=== PATIENT | male | born 1970 | race Caucasian/White ===

== ENCOUNTER 2022-03-07 09:06 | Emergency (ER) | payer OTHER, SELFPAY ==
[2022-03-07 09:14] VITALS: BP 156/101; PULSE 108; RESP 14; TEMP 36.6; O2SAT 99
--- NOTE | 2022-03-07 09:27 | ED_ITS ---
HPI - Animal Bite General Chief Complaint: Animal Bite Stated Complaint: spider bite L leg Time Seen by Provider: 03/07/22 09:20 History of Present Illness HPI narrative: 51-year-old male presents to the emergency room with suppose it spider bites to his left buttocks. 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 However he did not see a spider bite him. Patient is unsure how a spider got into his pants and bit him on the buttocks. Patient states the bite developed into an abscess over the past couple of days. Also has other scattered large erythematous areas to his left upper leg and right wrist. Patient states that he has noticed multiple bites scattered over his body that usually resolve within 1 to 2 weeks Review of Systems Review of Systems: CONSTITUTIONAL: Denies fever, chills, or sweats. EYES: Denies visual changes, redness, or discharge. ENT: Denies rhinorrhea, congestion, sore throat, or otalgia. CARDIOVASCULAR: Denies chest pain, palpitations, or edema. RESPIRATORY: Denies cough or dyspnea. GASTROINTESTINAL: Denies abdominal pain, nausea, vomiting, or diarrhea. GENITOURINARY: Denies dysuria or hematuria. SKIN: Denies rash or itching. MUSCULOSKELETAL: Denies back pain, joint pain, or myalgia. NEUROLOGIC: Denies headache, numbness, dizziness, or weakness. PSYCHIATRIC: Denies anxiety or depression. Exam Narrative: GENERAL: Well-appearing, well-nourished, no physical limitations, and in no acute distress. HEAD: Normocephalic, atraumatic. EYES: Conjunctivae normal, PERRLA and EOMI. CHEST: Clear to auscultation. No respiratory distress. No wheezes rales or rhonchi. HEART: Regular rate and rhythm. No murmur heard. Normal peripheral pulses. EXTREMITIES: Normal range of motion. No edema. No clubbing or cyanosis SKIN:LLE: 2 cm ulceration with surrounding erythema to upper lateral leg, no signs of lymphangitic spread. Large erythematous tender swollen area just superior to the ulcer. NEURO: No focal deficits. Alert and oriented x3. MAEW. CN's II-XI intact bilaterally, normal gait PSYCH: Cooperative. Normal mood and affect. Course Vital Signs Vital signs: Vital Signs Temperature 36.6 C 03/07/22 09:14 Pulse Rate 108 H 03/07/22 09:14 Respiratory Rate 14 03/07/22 09:14 Blood Pressure 156/101 H 03/07/22 09:14 Pulse Oximetry 99 03/07/22 09:14 Oxygen Delivery Room Air 03/07/22 09:14 Temperature 36.6 C 03/07/22 09:14 Pulse Rate 108 H 03/07/22 09:14 Respiratory Rate 14 03/07/22 09:14 Blood Pressure 156/101 H 03/07/22 09:14 Pulse Oximetry 99 03/07/22 09:14 Oxygen Delivery Room Air 03/07/22 09:14 Discharge Plan Discharge Clinical Impression: Abscess Patient Disposition: Home, Self-Care Condition: Stable Instructions: Antibiotic Form, Abscess (ED) Prescriptions: New sulfamethoxazole-trimethoprim [Bactrim DS] 800-160 mg tablet 1 tablet PO Q12H 10 Days Qty: 20 0RF Follow-up/Referrals: PHYSICIAN,LAUNDERER HAND [Primary Care Provider] - Time of Disposition: 09:38
== END 2022-03-07 10:04 | disposition home or self-care (01) ==
LOC: ANHED 09:50
PROVIDERS: Emergency Provider Nurse Practitioner Family
DX: L02.416 Cutaneous abscess of left lower limb (principal)
CPT/HCPCS: 87070; 87077; 87186; 87205; 99283